=== PATIENT | female | born 1975 | race Caucasian/White ===

== ENCOUNTER 2018-03-28 15:47 | Emergency (ER) | payer OTHER ==
[~2018-03-28] VITALS: Ht 157.5 cm; Wt 69.4 kg
[2018-03-28 16:07] VITALS: Ht 157.5 cm; Wt 69.4 kg
[2018-03-28 18:38] VITALS: BP 140/85
== END 2018-03-28 18:44 | disposition home or self-care (01) ==
LOC: ED 15:47
DX: M75.31 Calcific tendinitis of right shoulder (principal); E78.00 Pure hypercholesterolemia, unspecified; Z98.890 Other specified postprocedural states
CPT/HCPCS: J1100; J1885

== ENCOUNTER 2019-01-27 13:41 | Emergency (ER) | payer OTHER ==
[~2019-01-27] VITALS: Ht 154.9 cm; Wt 71.7 kg
[2019-01-27 13:58] VITALS: Ht 154.9 cm; Wt 71.7 kg
[2019-01-27 18:16] VITALS: BP 138/85
== END 2019-01-27 18:16 | disposition home or self-care (01) ==
LOC: ED 13:41
DX: S29.012A Strain of muscle and tendon of back wall of thorax, initial encounter (principal); E78.00 Pure hypercholesterolemia, unspecified; X50.0XXA Overexertion from strenuous movement or load, initial encounter; Y93.89 Activity, other specified; Y92.89 Other specified places as the place of occurrence of the external cause; Y99.8 Other external cause status
CPT/HCPCS: 85378; J1885; Q0092

== ENCOUNTER 2019-04-11 00:52 | Emergency (ER) | payer OTHER ==
[~2019-04-11] VITALS: Ht 157.5 cm; Wt 71.8 kg
[2019-04-11 00:56] VITALS: Ht 157.5 cm; Wt 71.8 kg
[2019-04-11 03:30] LABS: BASOPHIL % 0.5 % (0-2); PLATELET COUNT 212 x10^3mcL (130-400); RED CELL DISTRIBUTION WIDTH 12.9 % (11.5-14.5)
[2019-04-11 04:00] LABS: ALKALINE PHOSPHATASE 108 U/L (46-116); ALT/SGPT 27 U/L (14-59); AST/SGOT 17 U/L (15-37); BILIRUBIN TOTAL 0.67 mg/dL (0.20-1.00); CALCIUM 8.3 mg/dL (8.5-10.1); CARBON DIOXIDE 28.1 mmol/L (21-32); CREATININE SERUM 0.7 mg/dL (0.6-1.0); GFR1 > 60 mL/min; GLUCOSE SERUM 116 mg/dL (74-106); TOTAL PROTEIN, SERUM 7.2 g/dL (6.4-8.2)
[2019-04-11 04:09] LABS: ALBUMIN 3.3 g/dL (3.4-5.0)
[2019-04-11 04:13] LABS: CHLORIDE SERUM 106 mmol/L (98-107); SODIUM SERUM 141 mmol/L (136-145)
[2019-04-11 05:16] VITALS: BP 113/69
== END 2019-04-11 05:16 | disposition home or self-care (01) ==
LOC: ED 00:52
PROVIDERS: Emergency Medicine
DX: R09.1 Pleurisy (principal); J20.9 Acute bronchitis, unspecified
CPT/HCPCS: 36415; 85378; J7613; J7644